=== PATIENT | female | born 2000 | race Caucasian/White ===

== ENCOUNTER 2020-03-27 15:49 | Emergency (ER) | payer OTHER ==
[2020-03-27 15:57] VITALS: RESP 18; TEMP 97.8
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
[2020-03-27] MEDS ORDERED: PROPARACAINE 0.5% OPHTH DROPS 15 ML BTL LEFT EYE STA (16:30)
[2020-03-27] MEDS ORDERED: FLUORESCEIN STRIPS 1 MG STRIP LEFT EYE ONE (16:30)
[2020-03-27] MEDS ORDERED: MOXIFLOXACIN HCL 0.5% DROPS 3 ML BTL LEFT EYE ONE (17:13)
[2020-03-27 18:22] VITALS: BP 120/74; PULSE 82
== END 2020-03-27 18:15 | disposition home or self-care (01) ==
LOC: EC 15:49
DX: T54.2X1A Toxic effect of corrosive acids and acid-like substances, accidental (unintentional), initial encounter (principal); T26.92XA Corrosion of left eye and adnexa, part unspecified, initial encounter; Y92.69 Other specified industrial and construction area as the place of occurrence of the external cause; Y99.0 Civilian activity done for income or pay
CPT/HCPCS: 99283

== ENCOUNTER 2020-11-25 20:49 | Emergency (ER) | payer OTHER ==
[2020-11-25] MEDS ORDERED: ONDANSETRON 4 MG ODT STARTER PACK 2 TAB BTL PO STA (21:17)
--- NOTE | 2020-11-25 22:30 | ED ---
General Adult HPI - General Chief complaint: Abdominal Pain Stated complaint: ABD pain,Dizzy Time Seen by Provider: 11/25/20 21:02 Source: patient Mode of arrival: ambulatory Limitations: no limitations - History of Present Illness Initial comments: 20 year-old female patient presents to the emergency department for evaluation of nausea and lightheadedness. Patient states that the nausea started when she woke this morning and persisted throughout the day. States she feels a pressure in her upper abdomen but denies any pain. Denies any urinary symptoms. Night chance of . Denies any fever or chills. Denies cough or congestion. She has not had any actual vomiting. Has been able to tolerate food and fluid today. Denies any history of similar type symptoms. Denies any new medications, or stopping any medications. - Related Data Previous Rx's Medication Instructions Recorded Cephalexin [Keflex] 500 mg PO BID #14 cap 11/25/20 Ondansetron [Zofran ODT] 4 mg PO Q8HR PRN #10 tab 11/25/20 Allergies Allergy/AdvReac Type Severity Reaction Status Date / Time No Known Allergies Allergy Verified 11/25/20 20:52 Review of Systems ROS Statement: Those systems with pertinent positive or pertinent negative responses have been documented in the HPI. ROS Other: All systems not noted in ROS Statement are negative. Past Medical History Past Medical History: No Reported History History of Any Multi-Drug Resistant Organisms: None Reported Past Surgical History: Tonsillectomy Past Psychological History: No Psychological Hx Reported Smoking Status: Never smoker Past Alcohol Use History: None Reported Past Drug Use History: None Reported General Exam Limitations: no limitations General appearance: alert, in no apparent distress ENT exam: Present: normal exam, normal oropharynx, mucous membranes moist Respiratory exam: Present: normal lung sounds bilaterally. Absent: respiratory distress, wheezes, rales, rhonchi, stridor Cardiovascular Exam: Present: regular rate, normal rhythm, normal heart sounds. Absent: systolic murmur, diastolic murmur, rubs, gallop, clicks GI/Abdominal exam: Present: soft, normal bowel sounds. Absent: distended, tenderness, guarding, rebound, rigid Neurological exam: Present: alert, oriented X3, CN II-XII intact Psychiatric exam: Present: normal affect, normal mood Skin exam: Present: warm, dry, intact, normal color. Absent: rash Course Vital Signs 11/25/20 20:50 Temperature 97.6 F Pulse Rate 71 Respiratory 18 Rate Blood Pressure 138/88 O2 Sat by Pulse 99 Oximetry Medical Decision Making - Medical Decision Making 20-year-old female patient presents to the emergency department today for evalua tion of nausea and some lightheadedness. Physical examination is unremarkable. Abdomen soft and nontender. She is neurologically intact with no focal deficits. She is given Zofran. Urinalysis was obtained and showed mild UTI. was negative. She'll be discharged with prescription for Zofran and keflex. Instructed him off the primary care physician for recheck in 1-2 days. Return parameters were discussed in detail. She verbalizes understanding and agrees with this plan. My attending is Dr. Smith. - Lab Data Lab Results 11/25/20 11/25/20 Range/Units 21:36 21:36 Urine Color Light Yellow Urine Appearance Cloudy H (Clear) Urine pH 6.5 (5.0-8.0) Ur Specific [place] 1.021 (1.001-1.035) Urine Protein Negative (Negative) Urine Glucose (UA) Negative (Negative) Urine Ketones Negative (Negative) Urine Blood Negative (Negative) Urine Nitrite Negative (Negative) Urine Bilirubin Negative (Negative) Urine Urobilinogen <2.0 (<2.0) mg/dL Ur Leukocyte Esterase Large H (Negative) Urine RBC 1 (0-5) /hpf Urine WBC 14 H (0-5) /hpf Ur Squamous Epith Cells 2 (0-4) /hpf Amorphous Sediment Rare H (None) /hpf Urine Bacteria Rare H (None) /hpf Urine Mucus Rare H (None) /hpf Urine HCG, Qual Not Detected (Not Detectd) Disposition Clinical Impression: Nausea, UTI (urinary tract infection) Disposition: HOME SELF-CARE Condition: Good Instructions (If sedation given, give patient instructions): Acute Nausea and Vomiting (ED), Urinary Tract Infection in Women (ED) Additional Instructions: Take medications as directed. Increase fluids. Rest. Follow-up with the primary care physician for recheck in 1-2 days. Return for any new, worsening, or concerning symptoms Prescriptions: Cephalexin [Keflex] 500 mg PO BID #14 cap Ondansetron [Zofran ODT] 4 mg PO Q8HR PRN #10 tab PRN Reason: Nausea Is patient prescribed a controlled substance at d/c from ED?: No Referrals: None,Stated [Primary Care Provider] - 1-2 days Time of Disposition: 22:48
[2020-11-25 22:42] LABS: Amorphous Sediment,Urine Rare /hpf; Appearance,Urine Cloudy (Clear); Bacteria,Urine Rare /hpf; Bilirubin,Urine Negative (Negative); Blood,Urine Negative (Negative); Color,Urine Light Yellow; Glucose,Urine (UA) Negative (Negative); Ketones,Urine Negative (Negative); Leukocyte Esterase,Urine Large (Negative); Mucus,Urine Rare /hpf; Nitrite,Urine Negative (Negative); PH, Urine 6.5 (5.0-8.0); Protein,Urine Negative (Negative); RBC,Urine 1 /hpf (0-5); Specific Gravity,Urine 1.021 (1.001-1.035); Squamous Epithelial Cell,Urine 2 /hpf (0-4); Urobilinogen,Urine <2.0 mg/dL (<2.0); WBC,Urine 14 /hpf (0-5)
[2020-11-25] MEDS ORDERED: CEPHALEXIN 500MG STARTER PACK 4 CAP BTL PO STA (22:46)
[2020-11-25 23:03] VITALS: BP 121/76; PULSE 78; RESP 16; TEMP 98
== END 2020-11-25 23:00 | disposition home or self-care (01) ==
LOC: EC 20:49
DX: N39.0 Urinary tract infection, site not specified (principal); R11.0 Nausea; R42 Dizziness and giddiness
CPT/HCPCS: 81001; 81025; 87086; 99284

== ENCOUNTER → 2024-07-24 | Outpatient (CLI) | payer OTHER ==
--- NOTE | 2024-07-24 17:43 | XR ---
EXAMINATION TYPE: XR Hip Complete LT DATE OF EXAM: 07/24/2024 5:27 PM COMPARISON: None. CLINICAL INDICATION: Female, 23 years old with history of S30.0XXA, pain TECHNIQUE: 2 view(s) obtained. FINDINGS: Femoral head articulates with the acetabulum. Joint space is preserved. No acute fracture or dislocat ion evident. Follow-up can be performed as clinically indicated. IMPRESSION: 1. No acute osseous abnormality left hip [facility], Workstation: [facility], 07/24/2024 5:40 PM
== END | disposition home or self-care (01) ==
LOC: RADXRMAIN 17:08
PROVIDERS: ATTEND Emergency Medicine
DX: S30.0XXA Contusion of lower back and pelvis, initial encounter (principal)
CPT/HCPCS: 73502

== ENCOUNTER → 2024-09-18 | Outpatient (CLI) | payer OTHER ==
--- NOTE | 2024-09-18 17:13 | CT ---
EXAMINATION TYPE: CT lumbar spine wo con DATE OF EXAM: 09/18/2024 4:37 PM COMPARISON: None CLINICAL INDICATION: Female, 24 years old with history of M54.50 LOW BACK PAIN; PHH, Chronic lower ba ck pain TECHNIQUE: Unenhanced CT of the lumbar spine was performed. Bone and soft tissue window settings are submitted as well as coronal and sagittal reconstructions. CT DLP: 2093.[address] CTDI: mGy Automated exposure control for dose reduction was used. FINDINGS: L1-L2: Well corticated osseous defect and loss of height involving the anterior superior endplate of the L1 which likely reflects a nonacute fracture with associated Schmorl node. Correlate with MRI. No rmal disc space height. No disc herniation protrusion or central stenosis. No facet joint arthropat hy. No evidence for foraminal encroachment. L2-L3: Normal disc space height. No disc herniation protrusion or central stenosis. No facet joint arthropathy. No evidence for foraminal encroachment. L3-L4: Normal disc space height. No disc herniation protrusion or central stenosis. No facet joint arthropathy. No evidence for foraminal encroachment. L4-L5: Normal disc space height. No disc herniation protrusion or central stenosis. No facet joint arthropathy. No evidence for foraminal encroachment. L5-S1: Normal disc space height. No disc herniation protrusion or central stenosis. No facet joint arthropathy. No evidence for foraminal encroachment. No paraspinal masses are identified. Remaining Lumbar segments are intact. IMPRESSION: Well corticated osseous defect and loss of height involving the anterior superior endplate of the L1 which likely reflects a nonacute fracture with associated Schmorl node. Correlate with MRI. [facility], , 09/18/2024 5:10 PM
--- NOTE | 2024-09-18 18:02 | MR ---
EXAMINATION TYPE: MR lumbar spine wo con DATE OF EXAM: 09/18/2024 5:56 PM COMPARISON: None. CLINICAL INDICATION: Female, 24 years old with history of M54.50 LOW BACK PAIN, L1 FX on 07-13-24 IV Contrast: cc (None if empty) TECHNIQUE: Multiplanar, multisequence images of the lumbar spine were acquired without IV contrast. L1-L2: There is deformity of superior endplate of L1 with loss of height involving the anterior super ior endplate. This could reflect Schmorl node with associated fracture. There is bony retropulsion of 4.5 mm. On STIR imaging there is mild increased signal within the bone marrow could reflect early olivera bacute process. Correlate with patient history. There is mild effacement of the ventral thecal sac at this level without evidence for central stenosis or cord compression. L2-L3: Normal disc appearance without desiccation. No herniation, protrusion or disc bulging. No ca nal stenosis is present. Foramina are patent bilaterally. L3-L4: Normal disc appearance without desiccation. No herniation, protrusion or disc bulging. No ca nal stenosis is present. Foramina are patent bilaterally. L4-L5: Normal disc appearance without desiccation. No herniation, protrusion or disc bulging. No ca nal stenosis is present. Foramina are patent bilaterally. L5-S1: Normal disc appearance without desiccation. No herniation, protrusion or disc bulging. No ca nal stenosis is present. Foramina are patent bilaterally. Remaining Lumbar segments are intact. No paraspinal masses are identified. Conus medullaris has a n ormal appearance. IMPRESSION: There is deformity of superior endplate of L1 with loss of height involving the anterior superior end plate. This could reflect Schmorl node with associated fracture. There is bony retropulsion of 4.5 mm . On STIR imaging there is mild increased signal within the bone marrow could reflect early subacute process. Correlate with patient history. [facility], , 09/18/2024 6:00 PM
== END | disposition home or self-care (01) ==
LOC: RADCTMAIN 15:48
PROVIDERS: ATTEND Orthopaedic Surgery
DX: M54.50 Low back pain, unspecified (principal); R29.890 Loss of height; G89.29 Other chronic pain
CPT/HCPCS: 72131; 72148